=== PATIENT | female | born 1930 ===

== ENCOUNTER 2018-01-02 09:41 | Emergency (ER) | payer OTHER ==
[2018-01-02 09:50] VITALS: PULSE 60
[2018-01-02] MEDS ORDERED: Albuterol 0.083% Inhal Sol (2.5 mg/3 mL) UD IH STA (10:02)
[2018-01-02 10:04] VITALS: RESP 20
[2018-01-02] MEDS ORDERED: Albuterol 0.083% Inhal Sol (2.5 mg/3 mL) UD ONE (10:22)
--- NOTE | 2018-01-02 10:40 | C.PDOC ---
History Of Present Illness 87 y/o female presents to the ER for evaluation of persistent non-productive cough for approx 1 month. Patient was seen by her PMD yesterday, who sent her for outpatient x-ray and ordered blood work. She states her bloodwork and CXR were normal, but her PMD would not give her cough medication with codeine, which she took previously in [place]; so she came to ER today. Patient denies chest pain, SOB, fever, leg edema, rash, abdominal pain, nausea/vomiting. Time Seen by Provider: 01/02/18 09:53 Chief Complaint (Nursing): Cough, Cold, Congestion History Per: Patient History/Exam Limitations: no limitations Onset/Duration Of Symptoms: Days Current Symptoms Are (Timing): Still Present Severity: Mild Past Medical History Reviewed: Historical Data, Nursing Documentation, Vital Signs Vital Signs: Last Vital Signs Temp 98.1 F 01/02/18 11:01 Pulse 60 01/02/18 11:01 Resp 20 01/02/18 11:01 BP 169/61 H 01/02/18 11:01 Pulse Ox 98 01/02/18 12:20 - Medical History PMH: HTN, Malignancy (Bladder CA) Other Surgeries: Surgery for bladder cancer Family History: States: No Known Family Hx - Social History Hx Tobacco Use: No Hx Alcohol Use: No Hx Substance Use: No - Immunization History Hx Tetanus Toxoid Vaccination: No Hx Influenza Vaccination: Yes Hx Pneumococcal Vaccination: No Review Of Systems Constitutional: Negative for: Fever Cardiovascular: Negative for: Chest Pain, Palpitations Respiratory: Positive for: Cough. Negative for: Shortness of Breath, Sputum Gastrointestinal: Negative for: Nausea, Vomiting, Abdominal Pain, Diarrhea Musculoskeletal: Negative for: Other (leg edema) Skin: Negative for: Rash Physical Exam - Physical Exam Appears: Well, Non-toxic, No Acute Distress, Other (Speaking in full sentences) Skin: Normal Color, Warm, Dry, No Rash Head: Normacephalic Eye(s): bilateral: Normal Inspection Nose: Normal Oral Mucosa: Moist Throat: Normal, No Erythema, No Exudate, No Drooling Neck: Supple Lymphatic: No Adenopathy Chest: Symmetrical Cardiovascular: Rhythm Regular Respiratory: No Accessory Muscle Use, No Rales, No Rhonchi, Wheezing (Scant expiratory wheezing bilaterally) Gastrointestinal/Abdominal: Normal Exam, Bowel Sounds, Soft, No Tenderness Extremity: Normal ROM, No Pedal Edema, No Calf Tenderness Extremity: Bilateral: No Pedal Edema, Normal Color And Temperature, Normal ROM Pulses: Left Dorsalis Pedis: Normal, Right Dorsalis Pedis: Normal Neurological/Psych: Oriented x3 Gait: Steady ED Course And Treatment O2 Sat by Pulse Oximetry: 98 (RA) Pulse Ox Interpretation: Normal - Radiology CXR: Viewed By Me, Read By Radiologist (taken 12/29/17 outpatient) CXR Interpretation: Yes: No Acute Disease. No: Infiltrates Progress Note: Outpatient CXR reviewed, negative for infiltrates. Patient given Albuterol nebulixer treatment, PO Prednisone, and PO Tessalon in the ED. Reevaluation Time: 11:00 Reassessment Condition: Improved (On reassessment, patient is resting comfortably and states she feels better. On exam, she has good air entry B/L without wheezing or accessory muscle use. Patient given Rxs for Prednisone, albuterol inhaler and Tessalon, and was instructed to follow up with PMD in 1-2 days. She understands she should return to ED if symptoms worsen.) Disposition Counseled Patient/Family Regarding: Diagnosis, Need For Followup, Rx Given - Disposition Referrals: Diana Chowdary MD [Medical Doctor] - Disposition: HOME/ ROUTINE Disposition Time: 10:50 Condition: STABLE Additional Instructions: FOLLOW UP WITH YOUR DOCTOR IN 1-2 DAYS YOUR BLOOD PRESSURE MEDICATION CAN CAUSE CHRONIC COUGH, ASK YOUR DOCTOR TO CHANGE IT FOR YOU USE MEDICATIONS DIRECTED RETURN TO EMERGENCY ROOM IF SYMPTOMS WORSEN SEGUIMIENTO CON ZULUAGA MDICO EN 1-2 PATTON ZULUAGA MEDICAMENTO PARA LA PRESIN ARTERIAL PUEDE CAUSAR TOS CRNICA, PIDA A ZULUAGA M DICO QUE LO CAMBIEN PARA USTED USE MEDICAMENTOS SEGN LO INDICADO REGRESE AL ABILIO DE EMERGENCIA SI LOS SNTOMAS EMPEORAN Prescriptions: Albuterol HFA [Ventolin HFA 90 mcg/actuation (8 g)] 0.09 mg IH Q4 PRN #1 puff PRN Reason: Wheezing Benzonatate [Tessalon Perles] 100 mg PO BID PRN #15 sgl PRN Reason: Cough predniSONE [predniSONE Tab] 20 mg PO DAILY #4 tab Forms: [facility] (Indonesian), General Discharge Instructions Print Language: MALAY - POA Present On Arrival: None - Clinical Impression Clinical Impression: Bronchospasm - Scribe Statement The provider has reviewed the documentation as recorded by the Elizabethibjimmy Sagastume Provider Attestation: All medical record entries made by the Kade were at my direction and personally dictated by me. I have reviewed the chart and agree that the record accurately reflects my personal performance of the history, physical exam, medical decision making, and the department course for this patient. I have also personally directed, reviewed, and agree with the discharge instructions and disposition.
[2018-01-02 11:03] VITALS: BP 169/61; TEMP 98.1
[2018-01-02 12:12] VITALS: O2SAT 98
== END 2018-01-02 11:04 | disposition home or self-care (01) ==
LOC: C.ER 09:41
DX: J98.01 Acute bronchospasm (principal)

== ENCOUNTER 2018-01-12 10:13 | Inpatient (IN) | payer OTHER ==
[2018-01-12] MEDS ORDERED: Nitroglycerin 2% Ointment Foilpak UD TOP STA (11:01)
[2018-01-12] MEDS ORDERED: Aspirin 325 mg EC Tablets PO STA (11:02)
[2018-01-12 11:33] LABS: BASO % 0.9 % (0.0-2.0); EOS # 0.1 K/uL (0.0-0.7); EOS % 2.5 % (0.0-4.0); HEMOGLOBIN 10.9 g/dL (11.0-16.0); LYMPH # 1.2 K/uL (1.0-4.3); LYMPH % 21.9 % (20.0-40.0); MEAN CELL VOLUME 81.9 fL (81.0-99.0); MEAN CORPUSCULAR HEMOGLOBIN 27.1 pg (27.0-31.0); MEAN CORPUSCULAR HGB CONC 33.1 g/dL (33.0-37.0); MEAN PLATELET VOLUME 8.1 fL (7.2-11.7); MONO # 0.6 K/uL (0.0-0.8); MONO % 11.9 % (0.0-10.0); NEUT # 3.4 K/uL (1.8-7.0); NEUT % 62.8 % (50.0-75.0); RED CELL DISTRIBUTION WIDTH 16.1 % (11.5-14.5); WHITE BLOOD COUNT 5.4 K/uL (4.8-10.8)
[2018-01-12] MEDS ORDERED: Nitroglycerin 2% Ointment Foilpak UD TOP ONE (11:36)
[2018-01-12] MEDS ORDERED: Aspirin 325 mg EC Tablets PO ONE (11:37)
[2018-01-12] MEDS ORDERED: hydrALAZINE 12.5 mg Tab PO STA (11:42)
[2018-01-12 11:51] LABS: INR 1.2; PROTHROMBIN TIME 12.7 SECONDS (9.7-12.2)
[2018-01-12 11:54] LABS: ALB/GLOB RATIO 1.4 (1.0-2.1); ALBUMIN 3.6 g/dL (3.5-5.0); ALT/SGPT 25 U/L (9-52); AST/SGOT 33 U/L (14-36); BLOOD UREA NITROGEN 12 mg/dL (7-17); CALCIUM 9.3 mg/dl (8.6-10.4); GFR AFRICAN-AMERICAN > 60; GFR NON-AFRICAN AMERICAN > 60
--- NOTE | 2018-01-12 11:56 | C.PDOC ---
History Of Present Illness 87 y/o female brought in by family for complaints of elevated blood pressure, chest pain, and SOB since yesterday. Patient describes pain as pressure-like. Daughter at bedside states the patient ran out of amlodipine, and the last dose was given yesterday. Patient has a history of PA 2 months ago. Otherwise patient denies any dizziness, visual changes, palpitations, cough, numbness, tingling, changes in speech, facial droop, focal weakness, or other complaints. Time Seen by Provider: 01/12/18 10:50 Chief Complaint (Nursing): High Blood Pressure History Per: Patient History/Exam Limitations: no limitations Onset/Duration Of Symptoms: Days Current Symptoms Are (Timing): Still Present Associated Symptoms: Chest Pain, Dyspnea Additional History Per: Family Past Medical History Reviewed: Historical Data, Nursing Documentation, Vital Signs Vital Signs: Last Vital Signs Temp 97.8 F 01/12/18 10:18 Pulse 55 L 01/12/18 11:41 Resp 14 01/12/18 11:41 BP 196/61 H 01/12/18 11:41 Pulse Ox 99 01/12/18 12:16 - Medical History PMH: HTN, Malignancy (Bladder CA) Other PMH: Myocardial infarction Other Surgeries: Bladder surgery Family History: States: Unknown Family Hx - Social History Hx Tobacco Use: No Hx Alcohol Use: No Hx Substance Use: No - Immunization History Hx Tetanus Toxoid Vaccination: No Hx Influenza Vaccination: Yes Hx Pneumococcal Vaccination: No Review Of Systems Except As Marked, All Systems Reviewed And Found Negative. Eyes: Negative for: Vision Change Cardiovascular: Positive for: Chest Pain. Negative for: Palpitations Respiratory: Positive for: Shortness of Breath. Negative for: Cough Gastrointestinal: Negative for: Nausea, Vomiting, Abdominal Pain, Diarrhea Neurological: Negative for: Weakness, Numbness, Change in Speech, Dizziness, Other (Facial droop) Physical Exam - Physical Exam Appears: Non-toxic, No Acute Distress, Other (Obese female) Skin: Normal Color, Warm, Dry Head: Atraumatic, Normacephalic Eye(s): bilateral: Normal Inspection Oral Mucosa: Moist Neck: Normal ROM Chest: Symmetrical, No Deformity, No Tenderness Cardiovascular: Rhythm Regular, No Murmur Respiratory: Normal Breath Sounds, No Rales, No Rhonchi, No Wheezing Gastrointestinal/Abdominal: Soft, No Tenderness, No Distention Back: Normal Inspection Extremity: Bilateral: Atraumatic, Normal Color And Temperature, Normal ROM Pulses: Left Dorsalis Pedis: Normal, Right Dorsalis Pedis: Normal Neurological/Psych: Oriented x3, Normal Speech ED Course And Treatment - Laboratory Results Result Diagrams: 01/12/18 11:30 01/12/18 11:30 Lab Interpretation: Abnormal (trop neg, BNP 5300 H) ECG: Interpreted By Me ECG Rhythm: L BBB ECG Interpretation: No Changes From Prior, Abnormal Rate From EC O2 Sat by Pulse Oximetry: 99 (room air) Pulse Ox Interpretation: Normal - Radiology CXR: Interpreted by Me, Viewed By Me CXR Interpretation: Yes: No Acute Disease Progress Note: NTP, hydralazine, ASA Reevaluation Time: 12:20 Reassessment Condition: Improved - Physician Consult Information Outcome Of Conversation: 1215: d/w Dr. Fields- medicine Lace Stripper- covering pt's for Dr. Jaki connell to admit. request Cardio Consult with Dr. Scott- so ordered. Medical Decision Making Medical Decision Making: Initial Plan: * EKG * CMP * Troponin I * Pro-BNP * CBC * PTT * Prothrombin time * Chest X-ray * Urinalysis * Aspirin 325 mg PO * NTG 2% TOP * Apresoline 10 mg PO Disposition Doctor Will See Patient In The: Hospital Counseled Patient/Family Regarding: Studies Performed, Diagnosis - Disposition Disposition: HOSPITALIZED Disposition Time: 12:21 Condition: GOOD Forms: [facility] (Bhutanese) - Clinical Impression Clinical Impression: Abnormal blood pressure, Chest tightness or pressure - Scribe Statement The provider has reviewed the documentation as recorded by the Kade Sagastume Provider Attestation: All medical record entries made by the Elizabethibjimmy were at my direction and personally dictated by me. I have reviewed the chart and agree that the record accurately reflects my personal performance of the history, physical exam, medical decision making, and the department course for this patient. I have also personally directed, reviewed, and agree with the discharge instructions and disposition.
[2018-01-12 11:57] LABS: URINE BILIRUBIN NEGATIVE (NEGATIVE); URINE BLOOD NEGATIVE (NEGATIVE); URINE CLARITY Clear (Clear); URINE COLOR Straw (YELLOW); URINE GLUCOSE (UA) NORMAL (Normal); URINE LEUKOCYTE ESTERASE NEG Leu/uL (Negative); URINE PROTEIN NEGATIVE (NEGATIVE); URINE UROBILINOGEN NORMAL mg/dL (0.2-1.0)
[2018-01-12 12:00] LABS: B-TYPE NATRIURETIC PEPTIDE 5290 pg/mL (0-900)
--- NOTE | 2018-01-12 12:12 | RAD ---
Date of service: 01/12/2018 PROCEDURE: CHEST RADIOGRAPH, 1 VIEW HISTORY: SOB COMPARISON: Chest radiograph dated 12/29/2017. FINDINGS: LUNGS: Clear. PLEURA: No pneumothorax or pleural fluid seen. CARDIOVASCULAR: Atherosclerotic aortic calcifications. Cardiomediastinal silhouette stably enlarged. OSSEOUS STRUCTURES: Unchanged. VISUALIZED UPPER ABDOMEN: Normal. OTHER FINDINGS: None. IMPRESSION: No active disease.
--- NOTE | 2018-01-12 16:45 | CP.PCM.CON ---
History of Present Illness - History of Present Illness History of Present Illness: 87 y/o female brought in by family for complaints of elevated blood pressure, chest pain, and SOB since yesterday. Patient describes pain as pressure-like. Daughter at bedside states the patient ran out of amlodipine, and the last dose was given yesterday. Patient has a history of DE 2 months ago. Otherwise patient denies any dizziness, visual changes, palpitations, cough, numbness, tingling, changes in speech, facial droop, focal weakness, or other complaints. As per daughter after the DE she did not had any catheterization or PCI. Now BP better controlled and her SOB has improved. Review of Systems - Constitutional Constitutional: As Per HPI - EENT Eyes: As Per HPI Ears: As Per HPI - Breasts Breasts: As Per HPI - Cardiovascular Cardiovascular: As Per HPI - Respiratory Respiratory: As Per HPI - Gastrointestinal Gastrointestinal: As Per HPI - Genitourinary Genitourinary: As Per HPI - Neurological Neurological: As Per HPI Past Patient History - Past Social History Smoking Status: Never Smoked - CARDIAC Hx Hypertension: Yes - GENITOURINARY/GYNECOLOGICAL Hx Bladder Cancer: Yes - PSYCHIATRIC Hx Substance Use: No - SURGICAL HISTORY Hx Surgeries: Yes Hx Cardiac Catheterization: Yes Other/Comment: urinary bladder Ca sx - ANESTHESIA Hx Anesthesia: Yes Hx Anesthesia Reactions: No Hx Malignant Hyperthermia: No Meds Allergies/Adverse Reactions: Allergies Allergy/AdvReac Type Severity Reaction Status Date / Time No Known Allergies Allergy Verified 01/12/18 10:22 - Medications Medications: Current Medications Amlodipine Besylate (Norvasc) 10 mg PO DAILY [facility] Losartan Potassium (Cozaar) 50 mg PO DAILY [facility] Physical Exam - Head Exam Head Exam: NORMOCEPHALIC - Neck Exam Neck exam: Positive for: Normal Inspection - Respiratory Exam Respiratory Exam: NORMAL BREATHING PATTERN - Cardiovascular Exam Cardiovascular Exam: REGULAR RHYTHM, Systolic Murmur - Neurological Exam Neurological exam: Alert, Oriented x3 Results - Vital Signs Recent Vital Signs: Last Vital Signs Temp 97.8 F 01/12/18 10:18 Pulse 50 L 01/12/18 15:09 Resp 16 01/12/18 15:09 BP 179/59 H 01/12/18 15:09 Pulse Ox 95 01/12/18 15:09 - Labs Result Diagrams: 01/12/18 11:30 07/30/18 11:30 Labs: Laboratory Results - last 24 hr 01/12/18 01/12/18 01/12/18 11:30 11:30 11:30 WBC 5.4 RBC 4.00 Hgb 10.9 L Hct 32.8 L MCV 81.9 MCH 27.1 MCHC 33.1 RDW 16.1 H Plt Count 207 MPV 8.1 Neut % (Auto) 62.8 Lymph % (Auto) 21.9 [place] % (Auto) 11.9 H Eos % (Auto) 2.5 Baso % (Auto) 0.9 Neut # (Auto) 3.4 Lymph # (Auto) 1.2 [place] # (Auto) 0.6 Eos # (Auto) 0.1 Baso # (Auto) 0.0 PT 12.7 H INR 1.2 APTT 30 Sodium 137 Potassium 3.5 L Chloride 99 Carbon Dioxide 29 Anion Gap 13 BUN 12 Creatinine 0.7 Est GFR ( Amer) > 60 Est GFR (Non-Af Amer) > 60 Random Glucose 120 H Calcium 9.3 Total Bilirubin 0.7 AST 33 ALT 25 Alkaline Phosphatase 49 Troponin I 0.0160 NT-Pro-B Natriuret Pep 5290 H Total Protein 6.2 L Albumin 3.6 Globulin 2.5 Albumin/Globulin Ratio 1.4 Urine Color Urine Clarity Urine pH Ur Specific [place] Urine Protein Urine Glucose (UA) Urine Ketones Urine Blood Urine Nitrate Urine Bilirubin Urine Urobilinogen Ur Leukocyte Esterase Urine WBC (Auto) Urine RBC (Auto) 01/12/18 11:44 WBC RBC Hgb Hct MCV MCH MCHC RDW Plt Count MPV Neut % (Auto) Lymph % (Auto) [place] % (Auto) Eos % (Auto) Baso % (Auto) Neut # (Auto) Lymph # (Auto) [place] # (Auto) Eos # (Auto) Baso # (Auto) PT INR APTT Sodium Potassium Chloride Carbon Dioxide Anion Gap BUN Creatinine Est GFR ( Amer) Est GFR (Non-Af Amer) Random Glucose Calcium Total Bilirubin AST ALT Alkaline Phosphatase Troponin I NT-Pro-B Natriuret Pep Total Protein Albumin Globulin Albumin/Globulin Ratio Urine Color Straw Urine Clarity Clear Urine pH 8.0 Ur Specific [place] 1.005 Urine Protein Negative Urine Glucose (UA) Normal Urine Ketones Negative Urine Blood Negative Urine Nitrate Negative Urine Bilirubin Negative Urine Urobilinogen Normal Ur Leukocyte Esterase Neg Urine WBC (Auto) < 1 Urine RBC (Auto) < 1 Assessment & Plan (1) Abnormal blood pressure Assessment and Plan: Patient with hypertension , uncontrolled BP. Reviewed medicine. BP better controlled now keep BP around 130-150. Check electrolyte keep K < 4 and supplement. Status: Acute (2) Chest tightness or pressure Assessment and Plan: As per family history of DE, R/O ACS, Load with DAPT. Echocardigram in AM to assess LV systolic function. Obtain if any record from [facility]. Status: Acute
[2018-01-12] MEDS ORDERED: Potassium Chloride 20 mEq ER Tab PO STA (16:52)
[2018-01-12 18:00] LABS: CK-MB 0.22 ng/mL (0.0-3.38); TROPONIN I 0.015 ng/mL (0.00-0.120)
[2018-01-12 23:26] LABS: TROPONIN I 0.013 ng/mL (0.00-0.120)
[2018-01-12 23:27] LABS: CK-MB 0.24 ng/mL (0.0-3.38)
[2018-01-13] MEDS ORDERED: Nitroglycerin 2% Ointment Foilpak UD TOP ONE (06:45)
[2018-01-13] MEDS: Enoxaparin 40 mg Syringe SC SCH (12:40)
--- NOTE | 2018-01-13 14:51 | CARD ---
APPROVED REPORT Date of service: 01/12/2018 EKG Measurement Heart [id number] <Conclusion> Sinus bradycardia with premature atrial complexes Left bundle branch block Abnormal ECG
[2018-01-13 15:45] VITALS: RESP 20
--- NOTE | 2018-01-13 16:49 | CP.PCM.PN ---
Subjective - Date & Time of Evaluation Date of Evaluation: 01/13/18 Time of Evaluation: 16:48 - Subjective Subjective: Feeling better and wants to go home. Objective - Vital Signs/Intake and Output Vital Signs (last 24 hours): Temp Pulse Resp BP Pulse Ox 97.7 F 59 L 20 134/55 L 99 01/13/18 15:00 01/13/18 15:00 01/13/18 15:00 01/13/18 15:00 01/13/18 15:00 Intake and Output: 01/13/18 01/13/18 06:59 18:59 Intake Total 120 Balance 120 - Medications Medications: Current Medications Amlodipine Besylate (Norvasc) 10 mg PO DAILY [facility] Last Admin: 01/13/18 09:00 Dose: 10 mg Aspirin (Aspirin Chewable) 81 mg PO DAILY [facility] Last Admin: 01/13/18 12:40 Dose: 81 mg Clopidogrel Bisulfate (Plavix) 75 mg PO DAILY [facility] Last Admin: 01/13/18 12:40 Dose: 75 mg Enoxaparin Sodium (Lovenox) 40 mg SC DAILY [facility] Last Admin: 01/13/18 12:40 Dose: 40 mg Losartan Potassium (Cozaar) 50 mg PO DAILY [facility] Last Admin: 01/13/18 09:00 Dose: 50 mg - Labs Labs: 01/12/18 11:30 01/12/18 11:30 PT 12.7 SECONDS (9.7-12.2) H 01/12/18 11:30 INR 1.2 01/12/18 11:30 APTT 30 SECONDS (21-34) 01/12/18 11:30 - Head Exam Head Exam: NORMOCEPHALIC - Neck Exam Neck Exam: Normal Inspection - Respiratory Exam Respiratory Exam: NORMAL BREATHING PATTERN - Cardiovascular Exam Cardiovascular Exam: REGULAR RHYTHM - Neurological Exam Neurological Exam: Alert, Oriented x3 Assessment and Plan (1) Abnormal blood pressure Assessment & Plan: Patient with chest pain and uncontrolled BP. BP better controlled now. Troponin negative so far. May D/C home if patient does not want to stay. Further work-up can be done as out patient. Echo reviewed, Normal LV systolic function with diastolic dysfunction. Status: Acute (2) Chest tightness or pressure Assessment & Plan: Troponin negative. so far. Plans for Echo. Control BP. Status: Acute
--- NOTE | 2018-01-13 17:05 | CARD ---
APPROVED REPORT Date of service: 01/13/2018 EXAM: Two-dimensional and M-mode echocardiogram with Doppler and color Doppler. Other Information Quality : GoodRhythm : INDICATION Dyspnea Chest Pain RISK FACTORS Hypertension 2D DIMENSIONS IVSd1.1 (0.7-1.1cm)Aortic Root (2D)2.9 (2.0-3.7cm) LVDd4.8 (3.9-5.9cm)PWd1.1 (0.7-1.1cm) LVDs3.3 (2.5-4.0cm)FS (%) 32.0 % LVEF (%)60.0 (>50%) M-Mode DIMENSIONS RVDd1.89 (2.1-3.2cm)Left Atrium (MM)4.01 (2.5-4.0cm) IVSd0.98 (0.7-1.1cm)Aortic Root2.80 (2.2-3.7cm) LVDd5.08 (4.0-5.6cm)Aortic Cusp Exc.1.81 (1.5-2.0cm) PWd1.17 (0.7-1.1cm)FS (%) 28 % LVDs3.68 (2.0-3.8cm)LVEF (%)58 (>50%) Mitral Valve MV E Vaqinkvu32.7cm/sMV A Eynhjxuq899.4cm/sE/A ratio0.7 TDI E/Lateral E'0.0E/Medial E'0.0 Tricuspid Valve TR Peak [id number]/sTR Peak [id number] LEFT VENTRICLE The left ventricle is normal size. There is borderline concentric left ventricular hypertrophy. The Ejection Fraction is 60-65%. There is normal LV segmental wall motion. Transmitral Doppler flow pattern is Grade I-abnormal relaxation pattern. The left atrial pressure is moderately elevated. RIGHT VENTRICLE The right ventricle is normal size. The right ventricular systolic function is normal. ATRIA The left atrium is mildly dilated. The right atrium size is normal. The interatrial septum is intact with no evidence for an atrial septal defect. AORTIC VALVE The aortic valve is normal in structure. No aortic regurgitation is present. MITRAL VALVE The mitral valve is normal in structure. Mitral regurgitation is mild to moderate. TRICUSPID VALVE The tricuspid valve is normal in structure. There is mild tricuspid regurgitation. Right ventricular systolic pressure is estimated at 50 mmHg. There is moderate pulmonary hypertension. PULMONIC VALVE The pulmonary valve is normal in structure. GREAT VESSELS The aortic root is normal size. The aortic root displays moderate sclerocalcific changes of the aortic root. The IVC is normal in size and collapses >50% with inspiration. PERICARDIAL EFFUSION trivial posterior pericardial effusion noted. <Conclusion> The left ventricle is normal size. There is borderline concentric left ventricular hypertrophy. The Ejection Fraction is 60-65%. Transmitral Doppler flow pattern is Grade I-abnormal relaxation pattern. The left atrial pressure is moderately elevated. The left atrium is mildly dilated. Mitral regurgitation is mild to moderate. There is mild tricuspid regurgitation. Right ventricular systolic pressure is estimated at 50 mmHg. There is moderate pulmonary hypertension. The aortic root is normal size. The aortic root displays moderate sclerocalcific changes of the aortic root. trivial posterior pericardial effusion noted.
[2018-01-14 07:29] LABS: HEMOGLOBIN 9.7 g/dL (11.0-16.0); MEAN CELL VOLUME 81.8 fL (81.0-99.0); MEAN CORPUSCULAR HEMOGLOBIN 26.9 pg (27.0-31.0); MEAN CORPUSCULAR HGB CONC 32.9 g/dL (33.0-37.0); MEAN PLATELET VOLUME 8.9 fL (7.2-11.7); RBC 3.63 Mil/uL (3.80-5.20); RED CELL DISTRIBUTION WIDTH 15.8 % (11.5-14.5)
[2018-01-14 07:41] LABS: IRON 85 ug/dL (37-170)
[2018-01-14 07:51] LABS: % IRON SATURATION 25 (20-55); TOTAL IRON BINDING CAPACITY 336 ug/dL (250-450)
[2018-01-14 08:08] LABS: ALB/GLOB RATIO 1.4 (1.0-2.1); ALBUMIN 3.1 g/dL (3.5-5.0); ALT/SGPT 30 U/L (9-52); AST/SGOT 32 U/L (14-36); BLOOD UREA NITROGEN 14 mg/dL (7-17); CALCIUM 8.9 mg/dl (8.6-10.4); GFR AFRICAN-AMERICAN > 60; GFR NON-AFRICAN AMERICAN > 60
[2018-01-14 09:33] LABS: FOLATE 14.5 ng/mL
[2018-01-14] MEDS: Enoxaparin 40 mg Syringe SC SCH (09:35)
--- NOTE | 2018-01-14 11:18 | HP ---
Copied To: Barb Fields MD Attending MD: Barb Fields MD The patient was seen and examined at bedside on 01/13/2018. CHIEF COMPLAINT: Chest pain. HISTORY OF PRESENT ILLNESS: Ms. Mable Isbell is an 87-year-old female brought by family by complaining of elevated blood pressure, chest pain, shortness of breath since yesterday. The patient describes the pain as pressure-like. Daughter at bedside states the patient ran out of the amlodipine and last dose was given yesterday. The patient has a history of VT two months ago. No dizziness. No visual changes. No palpitations. No hematuria or hematochezia. No fever. No chills. The patient was seen by me in her room, looking comfortable. PAST MEDICAL HISTORY: Hypertension, malignancy, bladder CA, history of myocardial infarction x2, bladder surgeries. FAMILY HISTORY: Unknown. HABITS: Never smoked. No drug. No ethanol. ALLERGIES: THE PATIENT IS NOT ALLERGIC WITH ANY MEDICATIONS. REVIEW OF SYSTEMS: The patient was seen and examined at the bedside, looking comfortable. No nausea, vomiting, or diarrhea. No hematuria. No hematochezia. No swelling of the leg. No headache, dizziness, or chest pain. Feels better. PHYSICAL EXAMINATION: VITAL SIGNS: Temperature 97.7, pulse 59, respiratory rate 20, blood pressure 134/55, pulse oximetry 99. HEENT: Head is normocephalic, atraumatic. Eyes, PERRLA. Extraocular muscles are intact. Conjunctivae clear. Nose is patent. Mucous membrane moist. NECK: Supple. No carotid bruit. No JVD or thyromegaly. CHEST: Bilaterally symmetric. HEART: S1 and S2 positive. LUNGS: Clear to auscultation. ABDOMEN: Soft. Bowel sounds. No organomegaly. EXTREMITIES: No edema. No cyanosis. NEUROLOGICAL: The patient is awake and alert. Moving all 4 extremities. No focal deficits. MEDICATIONS: Amlodipine, aspirin, Plavix, Lovenox, Cozaar. LABORATORY DATA: White blood cells 5.4, hemoglobin 10.9, hematocrit 32.8, platelets 207,000. Sodium 137, potassium 3.5, BUN 12, creatinine 0.7, glucose 120. ASSESSMENT AND PLAN: Ms. Mable Al is an 87-year-old female with anemia, hypokalemia, hyperglycemia, came with abnormal blood pressure. The patient with chest pain and uncontrolled blood pressure, better controlled now. Troponin negative so far. Echo reviewed, normal. Left ventricular systolic function with diastolic dysfunction. and troponin negative so far. Plan, therefore, is better control of blood pressure. As per Dr. Scott, patient's advertising copywriter, electrocardiogram and echocardiography were done. The patient has history of VT x2, malignancy, bladder cancer, bladder surgery, getting treatment. We will control blood pressure. We will give physical therapy and we will follow. Barb Fields MD : 01/13/2018 23:51:42 MTDD
[2018-01-14] MEDS ORDERED: Potassium Chloride 20 mEq ER Tab PO ONE (15:45)
--- NOTE | 2018-01-14 18:19 | CP.PCM.PN ---
Subjective - Date & Time of Evaluation Date of Evaluation: 01/14/18 Time of Evaluation: 18:15 - Subjective Subjective: Denies any new complaints. asking when she can go home. Objective - Vital Signs/Intake and Output Vital Signs (last 24 hours): Temp Pulse Resp BP Pulse Ox 98.3 F 60 20 134/54 L 97 01/14/18 15:52 01/14/18 16:48 01/14/18 15:52 01/14/18 15:52 01/14/18 15:52 Intake and Output: 01/14/18 01/14/18 06:59 18:59 Intake Total 120 Balance 120 - Medications Medications: Current Medications Amlodipine Besylate (Norvasc) 10 mg PO DAILY [facility] Last Admin: 01/14/18 09:34 Dose: 10 mg Aspirin (Aspirin Chewable) 81 mg PO DAILY [facility] Last Admin: 01/14/18 09:35 Dose: 81 mg Clopidogrel Bisulfate (Plavix) 75 mg PO DAILY [facility] Last Admin: 01/14/18 09:34 Dose: 75 mg Enoxaparin Sodium (Lovenox) 40 mg SC DAILY [facility] Last Admin: 01/14/18 09:35 Dose: 40 mg Famotidine (Pepcid) 20 mg PO DAILY [facility] Last Admin: 01/14/18 09:34 Dose: 20 mg Losartan Potassium (Cozaar) 50 mg PO DAILY [facility] Last Admin: 01/14/18 09:35 Dose: 50 mg - Labs Labs: 01/14/18 07:20 01/14/18 07:20 PT 12.7 SECONDS (9.7-12.2) H 01/12/18 11:30 INR 1.2 01/12/18 11:30 APTT 30 SECONDS (21-34) 01/12/18 11:30 - Head Exam Head Exam: NORMOCEPHALIC - Neck Exam Neck Exam: Normal Inspection - Respiratory Exam Respiratory Exam: NORMAL BREATHING PATTERN - Cardiovascular Exam Cardiovascular Exam: REGULAR RHYTHM, Murmur Additional comments: 2/6 systolic murmur. - Extremities Exam Extremities Exam: Normal Inspection - Neurological Exam Neurological Exam: Alert, Oriented x3 Assessment and Plan (1) Abnormal blood pressure Assessment & Plan: BP better controlled. Needs Medicine and diet compliance. Status: Acute (2) Chest tightness or pressure Assessment & Plan: Improved. work-up Correct electrolyte abnormalities. Status: Acute
[2018-01-15 00:39] VITALS: O2SAT 100
--- NOTE | 2018-01-15 05:12 | PN ---
Copied To: Barb Fields MD Attending MD: Barb Fields MD DATE: 01/14/2018 The patient is an 87-year-old female. SUBJECTIVE: The patient was seen and examined at the bedside. The patient denies any new complaints. No nausea, vomiting, diarrhea. No hematuria or hematochezia. No headache or dizziness. No chest pain. No palpitation. No headache. No fever. PHYSICAL EXAMINATION: VITAL SIGNS: Temperature 98.3, pulse 50, respiratory rate 20, blood pressure 134/54, pulse oximetry 97. HEENT: Head, normocephalic and atraumatic. Eyes, PERRLA. Extraocular muscles intact. Conjunctivae clear. Nose is patent. Mucous membrane is moist. NECK: Supple. No carotid bruit. No JVD or thyromegaly. CHEST: Bilaterally symmetrical. HEART: S1 and S2 positive. LUNGS: Clear to auscultation. ABDOMEN: Soft. Bowel sounds present. No organomegaly. EXTREMITIES: No edema. No cyanosis. NEUROLOGICAL: The patient is awake, alert. Moving all four extremities. No focal deficits. MEDICATIONS: Norvasc, aspirin, Plavix, Lovenox, Pepcid, Cozaar. LABORATORY DATA: White blood cells 6.4, hemoglobin 9.7, hematocrit 29.7, platelets 204,000. Sodium 134, potassium 3.4, BUN 14, creatinine 0.8, glucose 85. ASSESSMENT AND PLAN: Ms. Mable Isbell is an 87-year-old lady with anemia, hypokalemia - replaced with p.o. potassium, came with abnormal blood pressure. Blood pressure got better control. Need medicine and dietary compliance. Chest tightness or pressure, seen by the container shop welder, Dr. Scott. The patient has dementia. Hypertension getting better. History of malignancy, bladder carcinoma. History of myocardial infarction. two bladder surgeries. Left ventricular systolic function with diastolic dysfunction. Troponin negative so far. Gastrointestinal and deep venous prophylaxis. Repeat labs. We will follow up. Barb Fields MD MELISSA
[2018-01-15 06:17] LABS: HEMOGLOBIN 9.9 g/dL (11.0-16.0); MEAN CORPUSCULAR HEMOGLOBIN 27.2 pg (27.0-31.0); MEAN CORPUSCULAR HGB CONC 33.1 g/dL (33.0-37.0); MEAN PLATELET VOLUME 8.7 fL (7.2-11.7); RBC 3.64 Mil/uL (3.80-5.20); WHITE BLOOD COUNT 5.6 K/uL (4.8-10.8)
[2018-01-15 06:39] LABS: ALB/GLOB RATIO 1.4 (1.0-2.1); ALBUMIN 3.2 g/dL (3.5-5.0); ALT/SGPT 28 U/L (9-52); AST/SGOT 36 U/L (14-36); BLOOD UREA NITROGEN 13 mg/dL (7-17); CALCIUM 9.1 mg/dl (8.6-10.4); GFR AFRICAN-AMERICAN > 60; GFR NON-AFRICAN AMERICAN > 60
[2018-01-15] MEDS: Enoxaparin 40 mg Syringe SC SCH (09:57)
[2018-01-15] MEDS ORDERED: POLYETHYLENE GLYCOL 3350 17 GM/Dose PACKET PO ONE (10:30)
--- NOTE | 2018-01-15 14:29 | CP.PCM.PN ---
Subjective - Date & Time of Evaluation Date of Evaluation: 01/15/18 Time of Evaluation: 14:28 - Subjective Subjective: Resting comfortably, no new complaints. Objective - Vital Signs/Intake and Output Vital Signs (last 24 hours): Temp Pulse Resp BP Pulse Ox 98.4 F 55 L 20 153/66 H 100 01/15/18 08:08 01/15/18 08:08 01/15/18 08:08 01/15/18 08:08 01/15/18 08:08 Intake and Output: 01/15/18 01/15/18 06:59 18:59 Intake Total 120 Balance 120 - Medications Medications: Current Medications Amlodipine Besylate (Norvasc) 10 mg PO DAILY [facility] Last Admin: 01/15/18 09:56 Dose: 10 mg Aspirin (Aspirin Chewable) 81 mg PO DAILY [facility] Last Admin: 01/15/18 09:56 Dose: 81 mg Clopidogrel Bisulfate (Plavix) 75 mg PO DAILY [facility] Last Admin: 01/15/18 09:56 Dose: 75 mg Enoxaparin Sodium (Lovenox) 40 mg SC DAILY [facility] Last Admin: 01/15/18 09:57 Dose: 40 mg Famotidine (Pepcid) 20 mg PO DAILY [facility] Last Admin: 01/15/18 09:57 Dose: 20 mg Losartan Potassium (Cozaar) 50 mg PO DAILY [facility] Last Admin: 01/15/18 09:57 Dose: 50 mg - Labs Labs: 01/15/18 06:11 01/15/18 06:11 PT 12.7 SECONDS (9.7-12.2) H 01/12/18 11:30 INR 1.2 01/12/18 11:30 APTT 30 SECONDS (21-34) 01/12/18 11:30 Assessment and Plan (1) Abnormal blood pressure Assessment & Plan: Stable, if no new issues. may D/C home from cardiac point. Status: Acute (2) Chest tightness or pressure Status: Acute
--- NOTE | 2018-01-15 14:33 | CP.PCM.PN ---
Subjective - Date & Time of Evaluation Date of Evaluation: 01/15/18 Time of Evaluation: 14:33 - Subjective Subjective: PT CLEARED FOR D/C HOME TODAY PER DR. JUARES. PT TO F/U IN HER OFFICE TOMORROW WELL THE ENGINE INSTALLER WITHIN 2-3 WEEKS. NO NEW MEDICATIONS RX TODAY. SEE BELOW FOR D/C INSTRUCTIONS PROVIDED TO THE PT. NO FURTHER ORDERS. -FOLLOW UP WITH DR. JUARES IN HER OFFICE TOMORROW---CALL THE OFFICE TODAY FOR AN APPOINTMENT TIME. -YOU MAY FOLLOW UP WITH DR. TINAJERO, ENGINE INSTALLER, IN HIS OFFICE WITHIN 2-3 WEEKS OR NEEDED. -CONTINUE HOME MEDICATIONS USUAL. -IF YOU HAVE ANY FURTHER QUESTIONS OR CONCERNS, CONTACT DR. JUARES'S OFFICE. - SEGUIMIENTO CON EL DR. JUARES EN [place] OFICINA MAANA --- LLAME A LA OFICINA HOY PARA CAS HORA DE RODRIGUE. -Usted PUEDE SEGUIR CON EL DR. TINAJERO, CARDIOLOGISTA, EN [place] OFICINA DENTRO DE 2- 3 SEMANAS O SEGN SEA NECESARIO. -CONTINUAR LOS MEDICAMENTOS [facility]. -SI TIENE ALGUNA OTRA PREGUNTA O PREOCUPACIN, PNGASE EN CONTACTO CON EL DR. HOSEA ANGEL. Objective - Vital Signs/Intake and Output Vital Signs (last 24 hours): Temp Pulse Resp BP Pulse Ox 98.4 F 55 L 20 153/66 H 100 01/15/18 08:08 01/15/18 08:08 01/15/18 08:08 01/15/18 08:08 01/15/18 08:08 Intake and Output: 01/15/18 01/15/18 06:59 18:59 Intake Total 120 Balance 120 - Medications Medications: Current Medications Amlodipine Besylate (Norvasc) 10 mg PO DAILY [facility] Last Admin: 01/15/18 09:56 Dose: 10 mg Aspirin (Aspirin Chewable) 81 mg PO DAILY [facility] Last Admin: 01/15/18 09:56 Dose: 81 mg Clopidogrel Bisulfate (Plavix) 75 mg PO DAILY [facility] Last Admin: 01/15/18 09:56 Dose: 75 mg Enoxaparin Sodium (Lovenox) 40 mg SC DAILY [facility] Last Admin: 01/15/18 09:57 Dose: 40 mg Famotidine (Pepcid) 20 mg PO DAILY [facility] Last Admin: 01/15/18 09:57 Dose: 20 mg Losartan Potassium (Cozaar) 50 mg PO DAILY [facility] Last Admin: 01/15/18 09:57 Dose: 50 mg - Labs Labs: 01/15/18 06:11 01/15/18 06:11 PT 12.7 SECONDS (9.7-12.2) H 01/12/18 11:30 INR 1.2 01/12/18 11:30 APTT 30 SECONDS (21-34) 01/12/18 11:30
[2018-01-15 16:31] VITALS: PULSE 59; TEMP 98.1
[2018-01-15 16:53] VITALS: BP 169/64
--- NOTE | 2018-01-15 21:36 | CARD ---
APPROVED REPORT Date of service: 01/13/2018 EKG Measurement Heart [id number] <Conclusion> Sinus bradycardia Left bundle branch block Abnormal ECG
--- NOTE | 2018-01-19 06:34 | DS ---
Copied To: Barb Fields MD Attending MD: Barb Fields MD CHIEF COMPLAINT: Chest pain. HISTORY OF PRESENT ILLNESS: Ms. Mable Isbell is an 87-year-old lady with a past medical history of multiple medical problems, came with elevated blood pressure, chest pain, shortness of breath. The patient described the pain is like pressure. Daughter was at the bedside and according to her they ran out of the amlodipine and was not given yesterday. Actually, the patient recently moved from [place]. She is now in [place]. She does not have private doctor. That is why, even she finished her amlodipine, but never went to get the amlodipine from anywhere. The patient has a history of NM two months ago. No dizziness. No headache. Dr. Varun Scott, sorting and folding supervisor. The patient started feeling better. No chest pain, no dizziness, discharged to home with daughter. Followup in my office, and gave a prescription of the medication. Daughter understands the discharge planning. PAST MEDICAL HISTORY: Hypertension, malignancy, bladder CA, history of myocardial infarction x2, bladder surgeries. FAMILY HISTORY: Unknown. HABITS: Never smoked. No drug. No ethanol. ALLERGIES: THE PATIENT IS NOT ALLERGIC WITH ANY MEDICATIONS. HOME MEDICATIONS: Reviewed by me. REVIEW OF SYSTEMS: The patient was seen and examined by me on the bedside and looking comfortable. Daughter was sitting on the bedside also. No nausea, vomiting, or diarrhea. No hematochezia. No swelling of the leg. No chest pain. No palpitation. No headache. No dizziness. Resting comfortably. No new complaints. PHYSICAL EXAMINATION: VITAL SIGNS: Temperature 98.4, pulse 55, respiratory rate 20, blood pressure 152/66, pulse oximetry 100%. HEENT: Head, normocephalic, atraumatic. Eyes, PERRLA. Extraocular movements intact. Conjunctivae clear. Nose patent. Mucous membranes moist. NECK: Supple. No carotid bruits. No thyromegaly. CHEST: Bilaterally symmetrical. HEART: S1, S2 positive. LUNGS: Clear to auscultation. ABDOMEN: Soft. Bowel sounds present. No organomegaly. EXTREMITIES: No edema. No cyanosis. NEUROLOGIC: The patient is awake and alert. Moving all four extremities. No focal deficit. MEDICATIONS: Amlodipine, aspirin, Plavix, Lovenox, Pepcid, losartan. LABORATORY DATA: White blood cells 5.6, hemoglobin 9.9, hematocrit 29.9, platelets 190. Sodium 139, potassium 4.2, BUN 13, creatinine 0.8, glucose 85. ASSESSMENT AND PLAN: Ms. Mable Isbell is an 87-year-old lady with abnormal blood pressure, was stable with medication. The patient came with chest pressure and chest tightness. According to Dr. Scott, the patient is okay to discharge, cleared by the sorting and folding supervisor. The patient is noncompliant. Discussion done with daughter, urged to be compliant. History of anemia, hypokalemia replaced. Prescription of the medications given. Followup appointment given. The patient had dementia, history of bladder cancer, history of malignancy, history of myocardial infarction, cardiac stenting, 2 bladder surgeries, left ventricular systolic function with diastolic dysfunction and troponin negative so far. Gastrointestinal and deep vein thrombosis prophylaxis given. Discharged by nurse practitioner, JUDIT Alberto. Barb Fields MD MELISSA
== END 2018-01-15 18:17 | disposition home or self-care (01) | DRG 305 ==
LOC: C.ER 10:13 → C.9E 12:17 → C.6T 19:37
PROVIDERS: ADMIT Internal Medicine; ATTEND Internal Medicine
DX: I10 Essential (primary) hypertension (principal); D64.9 Anemia, unspecified; E87.6 Hypokalemia; F03.90 Unspecified dementia, unspecified severity, without behavioral disturbance, psychotic disturbance, mood disturbance, and anxiety; I25.2 Old myocardial infarction; Z85.51 Personal history of malignant neoplasm of bladder; Z91.14 Patient's other noncompliance with medication regimen; Z95.5 Presence of coronary angioplasty implant and graft